=== PATIENT | male | born 1945 | race Caucasian/White ===

== ENCOUNTER 2016-06-18 11:49 | Day surgery (SDC) | payer OTHER ==
[~2016-06-18] VITALS: Ht 185.4 cm; Wt 127.0 kg
[2016-06-18] MEDS ORDERED: LIDOCAINE 2%HCL (LOCAL ANESTH.) INJ 20ML MDV ONE (12:51)
[2016-06-18] MEDS ORDERED: IODIXANOL 320MG/ML 100ML BTL IV ONE (12:51)
[2016-06-18] MEDS ORDERED: VERAPAMIL 2.5MG/ML INJ 2ML VIAL IV ONE (12:55)
[2016-06-18] MEDS ORDERED: MIDAZOLAM HCL 1MG/1ML-2 ML VIAL ONE (12:55)
[2016-06-18] MEDS ORDERED: fentaNYL CITRATE 100 MCG/2 ML VL ONE (12:55)
[2016-06-18] MEDS ORDERED: HEPARIN SODIUM (PORCINE) 5000 UNITS/ML 1ML VIAL ONE (13:15)
== END 2016-06-18 15:57 | disposition home or self-care (01) ==
LOC: CATH 11:49
PROVIDERS: ATTEND Internal Medicine
DX: R94.39 Abnormal result of other cardiovascular function study (principal)
CPT/HCPCS: 93458; C1760; C1769; C1894; J1644; J2250; J3010; J7030; Q9967; 99152